=== PATIENT | male | born 1955 | race Hispanic/Latino ===

== ENCOUNTER → 2017-05-23 | Outpatient (CLI) | payer OTHER ==
[~2017-05-23] MED LIST: IOPAMIDOL 370 MG/ML 200 ML INFUS..BTL INJ ONE; SODIUM CHLORIDE 0.9% 50ML 50 ML ONE
[2017-05-23 18:22] LABS: BLOOD UREA NITROGEN 9 mg/dL (7-26); BUN/CREATININE RATIO 11 (6-25); CREATININE, SERUM 0.81 mg/dL (0.72-1.25); EST GLOMERULAR FILTRATION RATE > 60 ML/MIN (60-)
--- NOTE | 2017-05-23 20:22 | Diagnostic Imaging Report ---
EXAM: CT Abdomen and Pelvis WITHOUT and WITH contrast INDICATION: Left hepatic lobe mass. COMPARISON: None. TECHNIQUE: Abdomen and pelvis were scanned utilizing a multidetector helical scanner from the lung base to the pubic symphysis before and after administration of IV contrast. Coronal and sagittal reformations were obtained. Liver mass protocol was performed. Scan was performed pre-, arterial, portal venous, and 5 minute delayed phase. IV CONTRAST: 100 mL of Isovue 370 ORAL CONTRAST: Water COMPLICATIONS: None RADIATION DOSE: Total DLP: 1895.7 mGy*cm Estimated effective dose: (DLP x 0.015 x size factor) mSv CTDIvol has been reviewed. It is below the limits set by the Radiation Protocol Committee (RPC). FINDINGS: LINES and TUBES: None. LOWER THORAX: Mild cardiomegaly. Questionable small pulmonary nodules. HEPATOBILIARY: 6.0 x 5.3 x 5.0 cm hypoenhancing mass in segment 3 of the liver (series 5 image 23). This lesion becomes more evident on 5 minute delayed phase. Along the anterior aspect there is a 4.2 x 5.1 x 3.5 cm mildly curvilinear fluid containing structure with density measuring 27 Hounsfield units (series 5 image 26). This fluid collection abuts the gastric antrum. No biliary ductal dilation. GALLBLADDER: There are cholecystectomy clips. SPLEEN: No splenomegaly. PANCREAS: No focal masses or ductal dilatation. ADRENALS: No adrenal nodules KIDNEYS/URETERS: Kidneys enhance symmetrically. No hydronephrosis. No cystic or solid mass lesions. No stones. GI TRACT: No abnormal distention, wall thickening, or evidence of bowel obstruction. Appendix is normal. PELVIC ORGANS/BLADDER: Unremarkable. LYMPH NODES: No lymphadenopathy. VESSELS: Unremarkable. PERITONEUM / RETROPERITONEUM: No free air or fluid. BONES: Focal mild to moderate degenerative changes at L5-S1 with posterior disc osteophyte. SOFT TISSUES: Small fat-containing left inguinal hernia. 0.8 cm hyperdensity around the umbilicus, possibly from previous surgical clip. IMPRESSION: 1. 6.0 cm hypoenhancing mass in segment 3 of the liver. This is an indeterminate lesion. However, intrahepatic cholangiocarcinoma should be highly considered. 2. 5.1 cm curvilinear fluid structure along the anterior aspect of the above-described mass also abuts the gastric antrum. This is a nonspecific fluid collection and may be result to from previous biopsy, pseudocysts, or biloma. 3. Questionable small pulmonary nodules. Recommend dedicated CT chest for further evaluation. Signed by: Dr. Emory Hernández M.D. on 05/23/2017 8:18 PM
== END ==
LOC: CT 16:41
PROVIDERS: ATTEND Internal Medicine Gastroenterology
DX: R16.0 Hepatomegaly, not elsewhere classified (principal)
CPT/HCPCS: 36415; 74178; 82565; 84520; Q9967

== ENCOUNTER 2024-10-30 15:35 | Inpatient (IN) | payer MEDICARE, OTHER ==
[~2024-10-30] VITALS: Ht 165.1 cm; Wt 88.3 kg
[2024-10-30 17:15] VITALS: TEMP 100
[2024-10-30 18:04] LABS: BASOPHILS % 0.2 % (0.0-1.0); EOSINOPHILS % 0.2 % (0.0-6.0); LYMPHOCYTES % 8.4 % (18.0-39.1); MONOCYTES % 8.4 % (4.4-11.3); NEUTROPHILS % 79.2 % (38.7-80.0); RED CELL DISTRIBUTION WIDTH 13.2 % (11.7-14.4)
[2024-10-30 18:16] LABS: LEUKOCYTE ESTERASE ,URINE NEGATIVE (NEGATIVE); PROTEIN,URINE DIPSTICK 2+ (NEGATIVE); URINE UROBILINOGEN 1 mg/dL (0.2 - 1)
[2024-10-30 18:25] LABS: YEAST,URINE FEW
[2024-10-30 18:30] LABS: EST GLOMERULAR FILTRATION RATE 89.0 ML/MIN (>=60)
[2024-10-30 18:37] LABS: CORONAVIRUS COVID-19 AG NEGATIVE (NEGATIVE)
[2024-10-30] MEDS: SODIUM CHLORIDE 0.9% 1000ML 1,000 ML IV ONE (19:04)
[2024-10-30] MEDS: ACETAMINOPHEN 325 MG TAB PO ONE (19:04)
[2024-10-30 19:45] VITALS: PULSE 82; RESP 23
[2024-10-30 20:00] VITALS: BP 121/62; PULSE 76; RESP 18; TEMP 98.3; O2SAT 97
[2024-10-30] MEDS ORDERED: ONDANSETRON HCL INJ 2MG/ML 2ML 2 MG/ML VIAL IV PRN (20:00)
[2024-10-30] MEDS ORDERED: DEXTROSE 50% SYRINGE 50 ML IV PRN (20:00)
[2024-10-30 21:05] VITALS: BP 121/62; PULSE 76; RESP 18; TEMP 98.3; O2SAT 97
[2024-10-30] MEDS: SODIUM CHLORIDE 0.9% 1000ML 1,000 ML IV SCH (22:19)
[2024-10-30] MEDS: INSULIN REGULAR, HUMAN 100 UNIT/1 ML SQ SCH (22:20)
[2024-10-30] MEDS ORDERED: TRADJENTA5 MG (22:33)
[2024-10-30] MEDS ORDERED: LISINOPRIL10 MG PO (22:33)
[2024-10-30] MEDS ORDERED: PIOGLITAZONE HC45 MG PO (22:33)
[2024-10-30 23:10] VITALS: PULSE 76; RESP 18; O2SAT 97
[2024-10-31] VITALS (8 sets, daily range): BP systolic 129–144; BP diastolic 65–75; PULSE 80–91; RESP 18; TEMP 98.4–100.3; O2SAT 97–100
[2024-10-31 06:38] LABS: BASOPHILS % 0.1 % (0.0-1.0); EOSINOPHILS % 0.0 % (0.0-6.0); LYMPHOCYTES % 7.4 % (18.0-39.1); MONOCYTES % 6.8 % (4.4-11.3); NEUTROPHILS % 83.0 % (38.7-80.0); RED CELL DISTRIBUTION WIDTH 13.3 % (11.7-14.4)
[2024-10-31 07:10] LABS: EST GLOMERULAR FILTRATION RATE 97.0 ML/MIN (>=60)
[2024-10-31] MEDS ORDERED: ACETAMINOPHEN 325 MG TAB PO PRN (08:45)
[2024-10-31] MEDS: TAMSULOSIN HCL 0.4 MG CAP PO SCH ×2 (08:54→21:22)
[2024-10-31] MEDS ORDERED: IOPAMIDOL 370 MG/ML 100 ML INFUS..BTL INJ ONE (09:21)
[2024-10-31] MEDS: Vancomycin IV 1 GM in SODIUM CHLORIDE 0.9% 250ML 250 ML IV SCH (18:04)
[2024-10-31] MEDS: CEFTRIAXONE 2 GM in SODIUM CHLORIDE 0.9% 100 ML IV SCH (21:22)
[2024-11-01] VITALS (9 sets, daily range): BP systolic 125–166; BP diastolic 64–72; PULSE 81–86; RESP 18; TEMP 98.7–100.9; O2SAT 97–100
[2024-11-01] MEDS ORDERED: CEFTRIAXONE 2 GM in SODIUM CHLORIDE 0.9% 100 ML IV SCH (09:00)
[2024-11-01] MEDS: FLUCONAZOLE 100 MG TAB PO ONE (17:59)
[2024-11-01] MEDS: MEROPENEM 1 GM in SODIUM CHLORIDE 0.9% 100 ML IV SCH (18:03)
[2024-11-02] VITALS (7 sets, daily range): BP systolic 125–178; BP diastolic 63–95; PULSE 70–87; RESP 16–20; TEMP 97.7–100.2; O2SAT 96–100
[2024-11-02] MEDS: ACETAMINOPHEN 325 MG TAB PO PRN (03:44)
[2024-11-02 06:48] LABS: BASOPHILS % 0.2 % (0.0-1.0); EOSINOPHILS % 1.1 % (0.0-6.0); LYMPHOCYTES % 24.4 % (18.0-39.1); MONOCYTES % 14.1 % (4.4-11.3); NEUTROPHILS % 59.5 % (38.7-80.0); RED CELL DISTRIBUTION WIDTH 13.2 % (11.7-14.4)
[2024-11-02 07:15] LABS: EST GLOMERULAR FILTRATION RATE 98.0 ML/MIN (>=60)
[2024-11-02 07:16] LABS: PHOSPHORUS 2.1 MG/DL (2.3-4.7)
[2024-11-02] MEDS: FLUCONAZOLE 100 MG TAB PO SCH (11:14)
[2024-11-03] VITALS: BP 138/77; PULSE 73; RESP 18; TEMP 97.9; O2SAT 98
[2024-11-03 06:20] LABS: HIV 1&2 AB SCREEN NON-REACTIVE (NONREACTIVE); HIV- 1 P24 AG SCREEN NON-REACTIVE (NONREACTIVE)
[2024-11-03 06:32] VITALS: BP 149/86; PULSE 76; RESP 16; TEMP 98.1; O2SAT 97
[2024-11-03 09:11] VITALS: BP 148/78; PULSE 82; RESP 18; TEMP 98.1; O2SAT 96
[2024-11-03 10:09] VITALS: BP 148/78; PULSE 82; RESP 18; TEMP 98.1; O2SAT 96
[2024-11-03 12:43] VITALS: BP 139/85; PULSE 77; RESP 20; TEMP 98.1; O2SAT 96
[2024-11-03] MEDS ORDERED: CEFDINIR300 MG PO (13:29)
[2024-11-04 17:07] LABS: THYROID PEROXIDASE ANTIBODY <9 IU/mL (0-34)
[2024-11-06 11:12] LABS: RHEUMATOID FACTOR 11.2 IU/mL (<14.0)
[2024-11-06 15:33] LABS: CYCLIC CITRULLINATED PEPTID AB 7 units (0-19)
== END 2024-11-03 13:27 | disposition home or self-care (01) | DRG 871 ==
LOC: ER 18:28 → ERHOLD 19:53 → MED/SURG2 21:07
PROVIDERS: ADMIT Internal Medicine; ATTEND Internal Medicine
PROC: 3E0333Z Introduction of Anti-inflammatory into Peripheral Vein, Percutaneous Approach (ICD-10-PCS; principal; 2024-10-30)
DX: A41.51 Sepsis due to Escherichia coli [E. coli] (principal); K57.91 Diverticulosis of intestine, part unspecified, without perforation or abscess with bleeding; B37.49 Other urogenital candidiasis; N12 Tubulo-interstitial nephritis, not specified as acute or chronic; Z16.12 Extended spectrum beta lactamase (ESBL) resistance; D69.6 Thrombocytopenia, unspecified; E11.9 Type 2 diabetes mellitus without complications; N30.90 Cystitis, unspecified without hematuria; I10 Essential (primary) hypertension; R31.0 Gross hematuria; N40.1 Benign prostatic hyperplasia with lower urinary tract symptoms; R39.14 Feeling of incomplete bladder emptying; N41.9 Inflammatory disease of prostate, unspecified; Z11.52 Encounter for screening for COVID-19; Z90.89 Acquired absence of other organs; Z90.49 Acquired absence of other specified parts of digestive tract; E66.9 Obesity, unspecified; Z68.32 Body mass index [BMI] 32.0-32.9, adult
CPT/HCPCS: 36415; 74177; 80048; 80053; 81001; 82948; 83036; 83605; 83735; 84100; 84443; 85025; 86039; 86200; 86376; 86431; 87040; 87045; 87071; 87086; 87186; 87205; 87390; 93005; 94799; 96372; 99252; 99284; G0433; G0435; J0696; J2185; J2543; J3373; J7030; J7050; Q9967